=== PATIENT | male | born 1950 | race Two or more races ===

== ENCOUNTER 2022-02-09 16:42 | Emergency (ER) | payer BC ==
[~2022-02-09] VITALS: Ht 193 cm; Wt 94.9 kg
--- NOTE | 2022-02-09 18:00 | NUR ---
PHLEB TECH ABLE TO DRAW BLOOD. UNABLE TO INSERT IV LINE AT THIS TIME.
--- NOTE | 2022-02-09 18:05 | NUR ---
CROSSING GUARD AT THE BEDSIDE
--- NOTE | 2022-02-09 18:21 | NUR ---
PATIENT ABLE TO DRINK AND SWALLOW WATER. NO COMPLAINT OF NAUSEA/VOMITING.
[2022-02-09] MEDS ORDERED: FUROSEMIDE 20 MG TABLET PO ONE (18:30)
[2022-02-09] MEDS ORDERED: FUROSEMIDE 20 MG TABLET ONE (18:42)
--- NOTE | 2022-02-09 18:48 | NUR ---
LASIX PO GIVEN TO PATIENT.
[2022-02-09 18:55] LABS: CALCIUM, SERUM 8.6 mg/dL (8.5-10.1); CARBON DIOXIDE 31 mmol/L (21-32); CHLORIDE 107 mmol/L (98-107); CREATININE 1.2 mg/dL (0.6-1.3); GLUCOSE 70 mg/dL (74-106); POTASSIUM 4.4 mmol/L (3.5-5.1); SODIUM SERUM 141 mmol/L (136-145); UREA NITROGEN, BLOOD 17 mg/dL (7-18)
[2022-02-09 19:26] LABS: BASOPHILS % (AUTO) 0.6 % (0.0-2.0); EOSINOPHILS % (AUTO) 3.1 % (0.0-6.0); HEMATOCRIT 35 % (39-51); HEMOGLOBIN 11.7 g/dL (13.5-17.5); LYMPHOCYTES # (AUTO) 1.9 K/uL (0.8-4.8); LYMPHOCYTES % (AUTO) 34.1 % (20.0-44.0); MEAN CORPUSCULAR HGB CONC 33 g/dl (31.0-36.0); MEAN CORPUSCULAR VOLUME 86 fL (80-96); MONOCYTES # (AUTO) 0.7 K/uL (0.1-1.30); MONOCYTES % (AUTO) 13.1 % (2.0-12.0); NEUTROPHILS # (AUTO) 2.7 K/uL (1.8-8.9); NEUTROPHILS % (AUTO) 49.1 % (43.0-81.0); PLATELET COUNT (AUTO) 355 K/uL (150-450); RED BLOOD CELL COUNT(AUTO) 4.09 MIL/uL (4.5-6.0); WHITE BLOOD COUNT (AUTO) 5.6 K/uL (4.3-11.0)
[2022-02-09] MEDS ORDERED: ACETAMINOPHEN 325 MG TABLET PO ONE (21:00)
[2022-02-09 21:17] VITALS: BP 134/70
[2022-02-09] MEDS ORDERED: ACETAMINOPHEN 325 MG TABLET ONE (21:37)
--- NOTE | 2022-02-09 21:50 | NUR ---
Patient DIscharged to home in stable condition. Written and verbal after care instructions given. Patient verbalizes understanding of instruction.
== END 2022-02-09 21:51 | disposition home or self-care (01) ==
LOC: ER 17:02
DX: R06.02 Shortness of breath (principal); R05.9 Cough, unspecified; R07.89 Other chest pain; I50.9 Heart failure, unspecified; Z88.8 Allergy status to other drugs, medicaments and biological substances
CPT/HCPCS: 36415; 71045-TC; 80048-TC; 84484-TC; 85025-TC